=== PATIENT | female | born 1985 | race Two or more races ===

== ENCOUNTER 2021-08-27 17:36 | Emergency (ER) | payer SELFPAY ==
[~2021-08-27] VITALS: Ht 152.4 cm; Wt 70.2 kg
[2021-08-27 18:45] VITALS: BP 135/85
--- NOTE | 2021-08-27 19:09 | PHYS DOC ---
Past Medical History Smoking Status: Never Smoker Alcohol Use: None General Adult EDM: Chief Complaint: LACERATION/AVULSION HPI: HPI: Patient is a 35-year-old Vietnamese-speaking patient who presents to the emergency department for a laceration to the tip of her left third finger. Laceration occurred at 5 PM this evening after she cut it on a knife. She reports that throbbing pain to the tip of her finger that she rates 8 out of 10. She is unsure of her last tetanus shot. She denies any decreased range of motion or decreased sensation to her finger. Review of Systems: Review of Systems: Musculoskeletal: See HPI Integument: See HPI Neurologic: See HPI Heart Score: C/O Chest Pain: N/A Risk Factors: Risk Factors: DM, Current or recent (<one month) smoker, HTN, HLP, family history of CAD, obesity. Risk Scores: Score 0 - 3: 2.5% MACE over next 6 weeks - Discharge Home Score 4 - 6: 20.3% MACE over next 6 weeks - Admit for Clinical Observation Score 7 - 10: 72.7% MACE over next 6 weeks - Early Invasive Strategies Allergies: Allergies: Allergies Coded Allergies Type Severity Reaction Last Updated Verified No Known Drug Allergies 08/27/21 No Physical Exam: PE: Constitutional: Well developed, well nourished, no acute distress, non-toxic appearance. [] HENT: Normocephalic, atraumatic, bilateral external ears normal, oropharynx moist, no oral exudates, nose normal. [] Eyes: PERRL, EOMI, conjunctiva normal, no discharge. [] Neck: Normal range of motion, no stridor Cardiovascular: Normal peripheral perfusion Lungs & Thorax: Normal work of breathing, no tachypnea Abdomen: Soft and flat Skin: Warm, dry, no erythema, no rash, 1 cm laceration that is well approximated to her tip of her left third finger, no active bleeding, range of motion intact, neuro intact, no signs of infection surrounding. Back: Normal range of motion Extremities: No tenderness, no cyanosis, no clubbing, ROM intact, no edema. [] Neurologic: Alert and oriented X 3, normal motor function, normal sensory function, no focal deficits noted. [] Psychologic: Affect normal, judgement normal, mood normal. [] EKG: EKG: [] Radiology/Procedures: Radiology/Procedures: [] Course & Med Decision Making: Course & Med Decision Making Pertinent Labs and Imaging studies reviewed. (See chart for details) [] Patient presents to the emergency department for a laceration to the tip of her left third finger. Laceration is already well approximated and has no active bleeding. Patient has full range of motion and is neurovascularly intact, there is no visible foreign bodies, no tendon involvement. Wound was cleansed in the emergency department and closed closed with skin glue. Patient tetanus updated. Patient given antibiotic prophylactically to prevent infection. Advised that she can take Tylenol and/or ibuprofen for pain. Patient advised to follow-up with her primary care provider. I discussed with patient all findings and diagnostic testing as well as the need to follow-up with PCP for further evaluation and treatment or return to the ER if any new or worsening symptoms. Strict return precautions were also discussed at length. Patient voiced understanding and agreement with the plan. Patient is hemodynamically stable at the time of disposition. Dragon Disclaimer: Dragon Disclaimer: This electronic medical record was generated, in whole or in part, using a voice recognition dictation system. Departure Departure Impression: Primary Impression: Laceration Disposition: HOME / SELF CARE / HOMELESS Condition: GOOD Referrals: NO PCP (PCP) Patient Instructions: Fingertip Laceration Additional Instructions: You were seen in the emergency department today for a laceration to your finger. This was cleansed in the ER and was repaired with skin glue. Your tetanus was updated today. Please do not submerge your hand in any water for 48 hours. Please not pick at the skin glue. You can take Tylenol and/or ibuprofen for your pain. You are being discharged home with a antibiotic, please start and finish this completely. Monitor for any signs of infection which include redness, warmth, swelling or drainage. Follow-up with your primary care provider within a week regarding your ER visit. Please return to the emergency department if you develop any worsening of your pain, increased swelling, decreased range of motion or decreased sensation or any signs of infection. Scripts Cephalexin (CEPHALEXIN) 500 Mg Tablet 1 TAB PO QID for 5 Days, #20 TAB 0 Refills Prov: JOMAR WOODS APRN 08/27/21 JOMAR WOODS APRN Aug 27, 2021 19:09
[2021-08-27] MEDS ORDERED: DIPH,PERTUSS(ACELL),TET VAC/PF 0.5 ML SYRINGE. VAX IM ONE (19:15)
[2021-08-27] MEDS ORDERED: CEPH500T PO (19:32)
== END 2021-08-27 19:46 | disposition home or self-care (01) ==
LOC: ER 17:36
DX: S61.213A Laceration without foreign body of left middle finger without damage to nail, initial encounter (principal); W26.0XXA Contact with knife, initial encounter; Y93.89 Activity, other specified; Y92.89 Other specified places as the place of occurrence of the external cause; Y99.8 Other external cause status
CPT/HCPCS: 12001; 90471; 90715; 99283